=== PATIENT | male | born 1985 | race Caucasian/White ===

== ENCOUNTER 2018-02-08 17:16 | Emergency (ER) | payer MEDICAID ==
[~2018-02-08] VITALS: Ht 188 cm; Wt 75.0 kg
[2018-02-08 17:17] VITALS: BP 151/93
[2018-02-08] MEDS ORDERED: ACETAMINOPHEN 325 MG TABLET ONE (17:55)
[2018-02-08] MEDS ORDERED: ACETAMINOPHEN 325 MG TABLET PO ONE (18:00)
== END 2018-02-08 18:37 | disposition home or self-care (01) ==
LOC: ED 17:57
DX: S20.212A Contusion of left front wall of thorax, initial encounter (principal); Y04.0XXA Assault by unarmed brawl or fight, initial encounter; Y93.89 Activity, other specified; Y92.410 Unspecified street and highway as the place of occurrence of the external cause; Y99.8 Other external cause status
CPT/HCPCS: 99284

== ENCOUNTER 2018-05-26 14:37 | Emergency (ER) | payer MEDICAID ==
[~2018-05-26] VITALS: Ht 188 cm; Wt 78.2 kg
[2018-05-26 14:48] VITALS: BP 146/103
[2018-05-26] MEDS ORDERED: ONDANSETRON ODT 4 MG PO ONE (15:00)
[2018-05-26 15:12] LABS: BASOPHILS # (AUTO) 0.02 x10^3/uL (0-0.1); BASOPHILS % (AUTO) 0 % (0-1); EOSINOPHILS # (AUTO) 0.04 x10^3/uL (0-0.4); EOSINOPHILS % (AUTO) 1 % (1-7); LYMPHOCYTES # (AUTO) 1.65 x10^3/uL (1-3.4); LYMPHOCYTES % (AUTO) 32 % (22-44); MD NO; MEAN CORPUSCULAR HEMOGLOBIN 30.9 pg (27.5-34.5); MEAN CORPUSCULAR HGB CONC 34.4 g/dL (33.2-36.2); MEAN CORPUSCULAR VOLUME 90.1 fL (81-97); MEAN PLATELET VOLUME 7.7 fL (7.4-10.4); MONOCYTES # (AUTO) 0.47 x10^3/uL (0.2-0.8); MONOCYTES % (AUTO) 9 % (2-9); NEUTROPHILS # (AUTO) 3.04 x10^3/uL (1.8-6.8); NEUTROPHILS % (AUTO) 58 % (42-75); PLATELET COUNT 259 x10^3/uL (130-400); RED CELL DISTRIBUTION WIDTH 12.7 % (9.4-14.8)
[2018-05-26 15:20] LABS: ALANINE AMINOTRANSFERASE 42 U/L (12-78); ALBUMIN 3.9 g/dL (3.4-5.0); ANION GAP 8 mmol/L (5-15); CALCIUM 8.6 mg/dL (8.5-10.1); CHLORIDE 105 mmol/L (98-107); CREATININE 1.15 mg/dL (0.7-1.3)
[2018-05-26 15:22] LABS: ALKALINE PHOSPHATASE 58 U/L (45-117); TOTAL PROTEIN 7.6 g/dL (6.4-8.2)
[2018-05-26] MEDS ORDERED: ONDANSETRON ODT 4 MG ONE (16:06)
[2018-05-26 16:42] LABS: CULTURE INDICATED? YES; MICROSCOPIC INDICATED
== END 2018-05-26 17:35 | disposition home or self-care (01) ==
LOC: ED 17:15
DX: R11.2 Nausea with vomiting, unspecified (principal); R19.7 Diarrhea, unspecified; F17.210 Nicotine dependence, cigarettes, uncomplicated
CPT/HCPCS: 36415; 80053; 81001; 83690; 85025; 87081; 87086; 87880; 99284; Q0162